=== PATIENT | female | born 1950 | race Two or more races ===

== ENCOUNTER 2017-09-16 08:04 | Emergency (ER) | payer BC, OTHER ==
[~2017-09-16] VITALS: Ht 157.5 cm; Wt 52.2 kg
[~2017-09-16 08:04] MED LIST: SUMA50TA PO
--- NOTE | 2017-09-16 08:26 | NUR ---
A/OX4, C/O RT SHOULDER/RT ARM PAIN S/P MOVING A HEAVY MACHINE ON SATURDAY. PT STS SHE FELT A CLICK IN HER RT [place]ICE[place] AREA. NAD VSS RR EVEN AND UNLABORED. WILL CONT TO MONITOR
[2017-09-16 09:40] VITALS: BP 135/76
== END 2017-09-16 09:41 | disposition home or self-care (01) ==
LOC: ER 08:05
DX: S46.211A Strain of muscle, fascia and tendon of other parts of biceps, right arm, initial encounter (principal); I10 Essential (primary) hypertension; G43.909 Migraine, unspecified, not intractable, without status migrainosus; X58.XXXA Exposure to other specified factors, initial encounter; Y93.89 Activity, other specified; Y92.89 Other specified places as the place of occurrence of the external cause; Y99.8 Other external cause status
CPT/HCPCS: 73030-TC; A4606; Z7610

== ENCOUNTER 2017-11-28 07:33 | Outpatient (CLI) | payer BC ==
[2017-11-28 08:14] LABS: ALBUMIN 3.6 g/dL (3.4-5.0); BILIRUBIN,TOTAL 0.4 mg/dL (0.2-1.0); CALCIUM, SERUM 8.8 mg/dL (8.5-10.1); CREATININE 0.7 mg/dL (0.6-1.3); POTASSIUM 4.1 mmol/L (3.5-5.1)
[2017-11-28 08:22] LABS: BASOPHILS % (AUTO) 0.2 % (0.0-2.0); HEMATOCRIT 41 % (33-45); HEMOGLOBIN 13.7 g/dL (11.5-14.8); LYMPHOCYTES # (AUTO) 1.3 /CMM (0.8-4.8); MEAN CORPUSCULAR HGB CONC 34 g/dl (31.0-36.0); MEAN CORPUSCULAR VOLUME 86 fL (82-100); MONOCYTES # (AUTO) 0.3 /CMM (0.1-1.30); MONOCYTES % (AUTO) 7.3 % (2.0-12.0); NEUTROPHILS # (AUTO) 2.4 /CMM (1.8-8.9); NEUTROPHILS % (AUTO) 60.5 % (43.0-81.0); PLATELET COUNT (AUTO) 235 /CMM (150-450); RDW COEFFICIENT OF VARIATION 12.9 (11.5-15.0); RED BLOOD CELL COUNT(AUTO) 4.72 MIL/uL (4.0-5.2); THYROID STIMULATING HORMONE 2.13 uIU/mL (0.358-3.74)
[2017-11-29 10:06] LABS: APPEARANCE,URINE CLEAR (CLEAR); BILIRUBIN,URINE NEGATIVE (NEGATIVE); BLOOD, URINE NEGATIVE Ery/uL (NEGATIVE); COLOR,URINE YELLOW (YELLOW); KETONES,URINE NEGATIVE (NEGATIVE); LEUKOCYTE ESTERASE ,URINE NEGATIVE (NEGATIVE); NITRITE, URINE NEGATIVE (NEGATIVE); PH,URINE 6.5 (5.0-8.0); PROTEIN,URINE NEGATIVE (NEGATIVE); UGLUCOSE NEGATIVE (NEGATIVE); UROBILINOGEN,URINE 0.2 EU/dL (0.2)
== END 2017-11-28 23:59 | disposition home or self-care (01) ==
LOC: LAB 07:33
PROVIDERS: ATTEND Nurse Practitioner Acute Care
DX: I70.0 Atherosclerosis of aorta (principal)
CPT/HCPCS: 36415; 71045-TC; 80053-TC; 80061-TC; 81000-TC; 82306; 84443-TC; 85025-TC; 86431-TC

== ENCOUNTER 2017-12-05 07:58 | Outpatient (CLI) | payer BC ==
[2017-12-05 09:47] LABS: CREATINE KINASE, TOTAL 56 U/L (26-192)
[2017-12-05 10:31] LABS: THYROID STIMULATING HORMONE 2.055 uIU/mL (0.358-3.74)
[2017-12-05 10:33] LABS: C-REACTIVE PROTEIN < 0.2 mg/dL (0.0-0.9)
[2017-12-06 18:12] LABS: *ANA ANTI-CENTROMERE B AB <0.2 AI (0.0-0.9); *ANA ANTI-DNA(DS) AB, QN 1 IU/mL (0-9); *ANA ANTI-JO-1 <0.2 AI (0.0-0.9); *ANA ANTICHROMATIN ANTIBODY 3.4 AI (0.0-0.9); *ANA RNP ANTIBODIES <0.2 AI (0.0-0.9); *ANA SJOGREN'S ANTI-SS-A <0.2 AI (0.0-0.9); *ANA SJOGREN'S ANTI-SS-B <0.2 AI (0.0-0.9); *ANAANTI-SCLERODERMA-70 AB <0.2 AI (0.0-0.9); *ANASMITH AB <0.2 AI (0.0-0.9)
[2017-12-08 05:11] LABS: CCP IgG/IgA AB 6 units (0-19)
== END 2017-12-05 23:59 | disposition home or self-care (01) ==
LOC: LAB 07:58
PROVIDERS: ATTEND Legal Medicine
DX: E11.9 Type 2 diabetes mellitus without complications (principal); M25.50 Pain in unspecified joint
CPT/HCPCS: 36415; 82550-TC; 84443-TC; 85652-TC; 86140-TC; 86200; 86225; 86235

== ENCOUNTER 2018-11-28 10:50 | Outpatient (CLI) | payer BC | END 2018-11-28 23:59 | disposition home or self-care (01) | LOC: MRI 10:50 | PROVIDERS: ATTEND Legal Medicine | DX: I63.89 Other cerebral infarction (principal); G31.89 Other specified degenerative diseases of nervous system; M50.323 Other cervical disc degeneration at C6-C7 level; M48.02 Spinal stenosis, cervical region; M25.78 Osteophyte, vertebrae; M50.221 Other cervical disc displacement at C4-C5 level; D18.09 Hemangioma of other sites | CPT/HCPCS: 70551-TC; 72141-TC ==

== ENCOUNTER 2018-12-11 07:10 | Outpatient (CLI) ==
[2018-12-11 08:51] LABS: BASOPHILS % (AUTO) 0.1 % (0.0-2.0); HEMATOCRIT 44 % (33-45); HEMOGLOBIN 14.8 g/dL (11.5-14.8); LYMPHOCYTES # (AUTO) 1.6 /CMM (0.8-4.8); LYMPHOCYTES % (AUTO) 32.4 % (20.0-44.0); MEAN CORPUSCULAR HGB CONC 33 g/dl (31.0-36.0); MEAN CORPUSCULAR VOLUME 87 fL (82-100); MONOCYTES # (AUTO) 0.4 /CMM (0.1-1.30); MONOCYTES % (AUTO) 7.5 % (2.0-12.0); NEUTROPHILS # (AUTO) 2.9 /CMM (1.8-8.9); PLATELET COUNT (AUTO) 231 /CMM (150-450); RED BLOOD CELL COUNT(AUTO) 5.08 MIL/uL (4.0-5.2); WHITE BLOOD COUNT (AUTO) 4.9 K/uL (4.3-11.0)
[2018-12-11 08:56] LABS: APPEARANCE,URINE CLEAR (CLEAR); BILIRUBIN,URINE NEGATIVE (NEGATIVE); BLOOD, URINE NEGATIVE Ery/uL (NEGATIVE); COLOR,URINE YELLOW (YELLOW); KETONES,URINE NEGATIVE (NEGATIVE); LEUKOCYTE ESTERASE ,URINE NEGATIVE (NEGATIVE); NITRITE, URINE NEGATIVE (NEGATIVE); PROTEIN,URINE NEGATIVE (NEGATIVE); UGLUCOSE NEGATIVE (NEGATIVE); UROBILINOGEN,URINE 0.2 EU/dL (0.2)
[2018-12-11 09:03] LABS: BILIRUBIN,TOTAL 0.6 mg/dL (0.2-1.0); CALCIUM, SERUM 9.1 mg/dL (8.5-10.1); CREATININE 0.8 mg/dL (0.6-1.3); POTASSIUM 4.4 mmol/L (3.5-5.1); TOTAL PROTEIN, SERUM 7.6 g/dL (6.4-8.2)
[2018-12-11 09:18] LABS: C-REACTIVE PROTEIN 0.6 mg/dL (0.0-0.9); THYROID STIMULATING HORMONE 2.178 uIU/mL (0.358-3.74); URIC ACID 4.6 mg/dL (2.6-7.2)
[2018-12-12 14:16] LABS: FOLIC ACID 16.1 ng/mL (>3.0)
== END 2018-12-11 23:59 | disposition home or self-care (01) ==
LOC: LAB 07:10
PROVIDERS: ATTEND Legal Medicine
DX: Z00.00 Encounter for general adult medical examination without abnormal findings (principal)
CPT/HCPCS: 36415; 80053-TC; 80061-TC; 81000-TC; 82306; 82728-TC; 83540-TC; 84439-TC; 84443-TC; 84550-TC; 85025-TC; 85652-TC; 86140-TC

== ENCOUNTER 2018-12-12 08:39 | Outpatient (CLI) | END 2018-12-12 23:59 | disposition home or self-care (01) | LOC: CARD 08:39 | PROVIDERS: ATTEND Legal Medicine | DX: I08.0 Rheumatic disorders of both mitral and aortic valves (principal); I10 Essential (primary) hypertension; R09.89 Other specified symptoms and signs involving the circulatory and respiratory systems | CPT/HCPCS: 93307-TC; 93880-TC ==

== ENCOUNTER 2019-11-06 08:21 | Emergency (ER) | payer BC ==
[~2019-11-06] VITALS: Ht 162.6 cm; Wt 63.0 kg
[2019-11-06] MEDS ORDERED: KETOROLAC TROMETHAMINE INJ 30 MG/ML VIAL ONE (08:29)
[2019-11-06 08:30] VITALS: BP 163/104
[2019-11-06] MEDS: KETOROLAC TROMETHAMINE INJ 60 MG/2 ML VIAL IM ONE (08:34)
--- NOTE | 2019-11-06 08:36 | NUR ---
Patient discharged to in stable condition. Written and verbal after care instructions given. Patient verbalizes understanding of instruction. Ambulatory, steady gait
== END 2019-11-06 08:36 | disposition home or self-care (01) ==
LOC: ER 08:22
DX: M54.41 Lumbago with sciatica, right side (principal); G43.909 Migraine, unspecified, not intractable, without status migrainosus; I10 Essential (primary) hypertension; Z79.899 Other long term (current) drug therapy
CPT/HCPCS: 96372; 99283; J1885

== ENCOUNTER 2019-12-17 07:22 | Outpatient (CLI) | payer BC, OTHER ==
[2019-12-17 09:01] LABS: BASOPHILS % (AUTO) 0.3 % (0.0-2.0); EOSINOPHILS % (AUTO) 0.1 % (0.0-6.0); HEMATOCRIT 43 % (33-45); HEMOGLOBIN 14.3 g/dL (11.5-14.8); LYMPHOCYTES # (AUTO) 1.6 /CMM (0.8-4.8); LYMPHOCYTES % (AUTO) 33.3 % (20.0-44.0); MEAN CORPUSCULAR HGB CONC 33 g/dl (31.0-36.0); MEAN CORPUSCULAR VOLUME 87 fL (82-100); MONOCYTES # (AUTO) 0.3 /CMM (0.1-1.30); MONOCYTES % (AUTO) 6.8 % (2.0-12.0); NEUTROPHILS # (AUTO) 2.8 /CMM (1.8-8.9); NEUTROPHILS % (AUTO) 59.5 % (43.0-81.0); PLATELET COUNT (AUTO) 232 /CMM (150-450); RED BLOOD CELL COUNT(AUTO) 4.93 MIL/uL (4.0-5.2); WHITE BLOOD COUNT (AUTO) 4.7 K/uL (4.3-11.0)
[2019-12-17 09:16] LABS: ALBUMIN 3.9 g/dL (3.4-5.0); BILIRUBIN,TOTAL 0.4 mg/dL (0.2-1.0); CREATININE 0.8 mg/dL (0.6-1.3); POTASSIUM 4.3 mmol/L (3.5-5.1); TOTAL PROTEIN, SERUM 7.5 g/dL (6.4-8.2)
[2019-12-17 09:19] LABS: BILIRUBIN,URINE NEGATIVE (NEGATIVE); BLOOD, URINE NEGATIVE Ery/uL (NEGATIVE); COLOR,URINE YELLOW (YELLOW); KETONES,URINE NEGATIVE (NEGATIVE); LEUKOCYTE ESTERASE ,URINE NEGATIVE (NEGATIVE); NITRITE, URINE NEGATIVE (NEGATIVE); PH,URINE 5.5 (5.0-8.0); PROTEIN,URINE NEGATIVE (NEGATIVE); UGLUCOSE NEGATIVE (NEGATIVE); UROBILINOGEN,URINE 0.2 EU/dL (0.2)
[2019-12-17 09:21] LABS: APPEARANCE,URINE CLEAR (CLEAR)
[2019-12-17 09:30] LABS: C-REACTIVE PROTEIN 0.7 mg/dL (0.0-0.9); THYROID STIMULATING HORMONE 2.349 uIU/mL (0.358-3.74); URIC ACID 3.4 mg/dL (2.6-7.2)
[2019-12-18 07:07] LABS: FOLIC ACID 16.5 ng/mL (>3.0)
== END 2019-12-17 23:59 | disposition home or self-care (01) ==
LOC: LAB 07:22
PROVIDERS: ATTEND Legal Medicine
DX: Z00.00 Encounter for general adult medical examination without abnormal findings (principal)
CPT/HCPCS: 36415; 80053-TC; 80061-TC; 81000-TC; 82306; 82550-TC; 82728-TC; 83540-TC; 84439-TC; 84443-TC; 84550-TC; 85025-TC; 85652-TC; 86140-TC; 86200; 86431-TC

== ENCOUNTER 2021-01-10 07:55 | Outpatient (CLI) | payer BC, OTHER ==
[2021-01-10 08:52] LABS: BASOPHILS % (AUTO) 0.2 % (0.0-2.0); HEMATOCRIT 42 % (33-45); HEMOGLOBIN 13.9 g/dL (11.5-14.8); LYMPHOCYTES # (AUTO) 1.5 /CMM (0.8-4.8); LYMPHOCYTES % (AUTO) 32.7 % (20.0-44.0); MEAN CORPUSCULAR HGB CONC 33 g/dl (31.0-36.0); MEAN CORPUSCULAR VOLUME 88 fL (82-100); MONOCYTES # (AUTO) 0.3 /CMM (0.1-1.30); MONOCYTES % (AUTO) 6.4 % (2.0-12.0); NEUTROPHILS # (AUTO) 2.7 /CMM (1.8-8.9); NEUTROPHILS % (AUTO) 60.7 % (43.0-81.0); PLATELET COUNT (AUTO) 274 /CMM (150-450); RED BLOOD CELL COUNT(AUTO) 4.81 MIL/uL (4.0-5.2); WHITE BLOOD COUNT (AUTO) 4.5 K/uL (4.3-11.0)
[2021-01-10 08:56] LABS: BILIRUBIN,URINE NEGATIVE (NEGATIVE); COLOR,URINE YELLOW (YELLOW); LEUKOCYTE ESTERASE ,URINE NEGATIVE (NEGATIVE); NITRITE, URINE NEGATIVE (NEGATIVE); PH,URINE 5.5 (5.0-8.0); PROTEIN,URINE NEGATIVE (NEGATIVE); UGLUCOSE NEGATIVE (NEGATIVE); UROBILINOGEN,URINE 0.2 EU/dL (0.2)
[2021-01-10 09:38] LABS: CHOLESTEROL 174 mg/dL (<200); CREATINE KINASE, TOTAL 79 U/L (26-192); FERRITIN 101 ng/mL (8-388); HDL CHOLESTEROL 37 mg/dL (40-60); LDL 113 mg/dL (0-99); THYROID STIMULATING HORMONE 1.863 uIU/mL (0.358-3.74); TRIGLYCERIDES 99 mg/dL (30-150); URIC ACID 4.2 mg/dL (2.6-7.2)
[2021-01-10 09:46] LABS: IRON, SERUM 64 ug/dl (50-175)
[2021-01-10 09:49] LABS: C-REACTIVE PROTEIN < 0.2 mg/dL (0.0-0.9)
[2021-01-10 09:53] LABS: ALANINE AMINOTRANSFERASE 40 U/L (12-78); ALBUMIN 3.7 g/dL (3.4-5.0); ALKALINE PHOSPHATASE 54 U/L (46-116); ASPARTATE AMINOTRANSFERASE 21 U/L (15-37); BILIRUBIN,TOTAL 0.4 mg/dL (0.2-1.0); CALCIUM, SERUM 8.8 mg/dL (8.5-10.1); CARBON DIOXIDE 25 mmol/L (21-32); CHLORIDE 107 mmol/L (98-107); CREATININE 0.8 mg/dL (0.6-1.3); GLUCOSE 122 mg/dL (74-106); POTASSIUM 4.3 mmol/L (3.5-5.1); SODIUM SERUM 142 mmol/L (136-145); TOTAL PROTEIN, SERUM 7.2 g/dL (6.4-8.2); UREA NITROGEN, BLOOD 18 mg/dL (7-18)
[2021-01-10 09:56] LABS: TOTAL IRON BINDING CAPACITY 282 ug/dl (250-450)
[2021-01-12 10:08] LABS: ALDOLASE 7.1 U/L (3.3-10.3)
[2021-01-12 21:06] LABS: CCP IgG/IgA AB 4 units (0-19)
== END 2021-01-10 23:59 | disposition home or self-care (01) ==
LOC: LAB 07:55
PROVIDERS: ATTEND Legal Medicine
DX: E03.9 Hypothyroidism, unspecified (principal); E78.5 Hyperlipidemia, unspecified; E23.0 Hypopituitarism; R53.1 Weakness; E11.9 Type 2 diabetes mellitus without complications; N18.9 Chronic kidney disease, unspecified; E55.9 Vitamin D deficiency, unspecified; Z00.00 Encounter for general adult medical examination without abnormal findings
CPT/HCPCS: 36415; 80053-TC; 80061-TC; 82085; 82306; 82550-TC; 82607-TC; 82728-TC; 83540-TC; 83615-TC; 84443-TC; 84550-TC; 85025-TC; 85652-TC; 86140-TC; 86200; 86431-TC

== ENCOUNTER 2021-03-24 09:54 | Outpatient (CLI) | payer BC, OTHER | END 2021-03-24 23:59 | disposition home or self-care (01) | LOC: MRI 09:54 | PROVIDERS: ATTEND Legal Medicine | DX: I67.82 Cerebral ischemia (principal) | CPT/HCPCS: 70551-TC ==

== ENCOUNTER 2021-04-05 07:15 | Emergency (ER) | payer BC, OTHER ==
[~2021-04-05] VITALS: Ht 162.6 cm; Wt 59.0 kg
--- NOTE | 2021-04-05 07:40 | NUR ---
DR WHITFIELD AT THE BEDSIDE
--- NOTE | 2021-04-05 07:45 | NUR ---
BIBS FOR C/O R LOWER BACK PAIN RADIATING TO RLE X 3 DAYS. THE PATIENT RATES PAINS 7/10. DENIES ANY TRAUMA. NO APPARENT DEFORMITY NOTED. WILL CONTINUE TO MONITOR THE PATIENT.
[2021-04-05] MEDS ORDERED: KETOROLAC TROMETHAMINE INJ 30 MG/ML VIAL ONE (07:54)
[2021-04-05] MEDS: KETOROLAC TROMETHAMINE INJ 30 MG/ML VIAL IM ONE (07:59)
[2021-04-05 08:25] VITALS: BP 144/90
--- NOTE | 2021-04-05 08:25 | NUR ---
Patient discharged to home in stable condition. Written and verbal after care instructions given. Patient verbalizes understanding of instruction.
== END 2021-04-05 08:26 | disposition home or self-care (01) ==
LOC: ER 07:17
DX: M54.42 Lumbago with sciatica, left side (principal); G43.909 Migraine, unspecified, not intractable, without status migrainosus; I10 Essential (primary) hypertension; Z79.899 Other long term (current) drug therapy
CPT/HCPCS: 96372; 99283; J1885

== ENCOUNTER 2022-02-16 06:55 | Outpatient (CLI) | payer BC, OTHER ==
[2022-02-16 08:41] LABS: BASOPHILS % (AUTO) 0.2 % (0.0-2.0); HEMATOCRIT 44 % (33-45); HEMOGLOBIN 14.7 g/dL (11.5-14.8); LYMPHOCYTES # (AUTO) 1.6 K/uL (0.8-4.8); LYMPHOCYTES % (AUTO) 34.3 % (20.0-44.0); MEAN CORPUSCULAR HGB CONC 33 g/dl (31.0-36.0); MEAN CORPUSCULAR VOLUME 86 fL (82-100); MONOCYTES # (AUTO) 0.4 K/uL (0.1-1.30); NEUTROPHILS # (AUTO) 2.6 K/uL (1.8-8.9); NEUTROPHILS % (AUTO) 57.5 % (43.0-81.0); PLATELET COUNT (AUTO) 260 K/uL (150-450); RED BLOOD CELL COUNT(AUTO) 5.14 MIL/uL (4.0-5.2); WHITE BLOOD COUNT (AUTO) 4.5 K/uL (4.3-11.0)
[2022-02-16 09:23] LABS: IRON, SERUM 79 ug/dl (50-175); TOTAL IRON BINDING CAPACITY 323 ug/dl (250-450)
[2022-02-16 09:37] LABS: CHOLESTEROL 200 mg/dL (<200); FERRITIN 72 ng/mL (8-388); HDL CHOLESTEROL 44 mg/dL (40-60); LDL 127 mg/dL (0-99); TRIGLYCERIDES 138 mg/dL (30-150); URIC ACID 4.4 mg/dL (2.6-7.2)
[2022-02-16 09:41] LABS: BILIRUBIN,URINE NEGATIVE (NEGATIVE); COLOR,URINE YELLOW (YELLOW); LEUKOCYTE ESTERASE ,URINE NEGATIVE (NEGATIVE); NITRITE, URINE NEGATIVE (NEGATIVE); PROTEIN,URINE NEGATIVE (NEGATIVE); UGLUCOSE NEGATIVE (NEGATIVE); UROBILINOGEN,URINE 0.2 EU/dL (0.2)
[2022-02-16 09:46] LABS: ALANINE AMINOTRANSFERASE 33 U/L (12-78); ALKALINE PHOSPHATASE 73 U/L (46-116); ASPARTATE AMINOTRANSFERASE 19 U/L (15-37); BILIRUBIN,TOTAL 0.6 mg/dL (0.2-1.0); CALCIUM, SERUM 9.2 mg/dL (8.5-10.1); CARBON DIOXIDE 29 mmol/L (21-32); CHLORIDE 104 mmol/L (98-107); CREATININE 0.8 mg/dL (0.6-1.3); GLUCOSE 117 mg/dL (74-106); POTASSIUM 4.1 mmol/L (3.5-5.1); SODIUM SERUM 139 mmol/L (136-145); UREA NITROGEN, BLOOD 20 mg/dL (7-18)
[2022-02-16 10:12] LABS: THYROID STIMULATING HORMONE 2.022 uIU/mL (0.358-3.74)
[2022-02-16 10:17] LABS: C-REACTIVE PROTEIN < 0.2 mg/dL (0.0-0.9)
== END 2022-02-16 23:59 | disposition home or self-care (01) ==
LOC: LAB 06:55
PROVIDERS: ATTEND Legal Medicine
DX: Z00.00 Encounter for general adult medical examination without abnormal findings (principal); K21.9 Gastro-esophageal reflux disease without esophagitis; D64.9 Anemia, unspecified; E03.9 Hypothyroidism, unspecified; E55.9 Vitamin D deficiency, unspecified; E78.00 Pure hypercholesterolemia, unspecified; E11.9 Type 2 diabetes mellitus without complications; R10.9 Unspecified abdominal pain
CPT/HCPCS: 36415; 80053-TC; 80061-TC; 82306; 82607-TC; 82728-TC; 83540-TC; 84439-TC; 84443-TC; 84550-TC; 85025-TC; 85652-TC; 86140-TC; 86431-TC

== ENCOUNTER 2022-02-23 08:29 | Emergency (ER) | payer BC, OTHER ==
[~2022-02-23] VITALS: Ht 162.6 cm; Wt 61.7 kg
[2022-02-23 08:34] VITALS: BP 154/106
--- NOTE | 2022-02-23 08:42 | NUR ---
THE PATIENT BIBS FOR C/O FACIAL DROOP NOTED LAST NIGHT AT 9 PM SHE WAS BRUSHING HER TEETH. IN ROOM AIR AND DENIES SOB. RESPIRATION REGULAR AND UNLABORED. DENIES PAIN. WILL CONTINUE TO MONITOR THE PATIENT.
[2022-02-23] MEDS ORDERED: PRED20TA PO (08:54)
[2022-02-23] MEDS ORDERED: VALA100026 PO (08:54)
--- NOTE | 2022-02-23 09:13 | NUR ---
Patient discharged to home in stable condition. Written and verbal after care instructions given. Patient verbalizes understanding of instruction.
== END 2022-02-23 09:14 | disposition home or self-care (01) ==
LOC: ER 08:37
DX: G51.0 Bell's palsy (principal); G43.909 Migraine, unspecified, not intractable, without status migrainosus; I10 Essential (primary) hypertension; Z79.899 Other long term (current) drug therapy

== ENCOUNTER 2023-05-03 08:30 | Outpatient (CLI) | payer BC, OTHER ==
[~2023-05-03 08:30] MED LIST changes: +AZIT250T PO; +GUAI-671 PO; +HYDR-3972 PO; +PRED20TA PO; +VALA100026 PO
[2023-05-03 09:30] LABS: BASOPHILS % (AUTO) 0.2 % (0.0-2.0); EOSINOPHILS % (AUTO) 0.6 % (0.0-6.0); HEMATOCRIT 45 % (33-45); HEMOGLOBIN 14.8 g/dL (11.5-14.8); LYMPHOCYTES # (AUTO) 1.5 K/uL (0.8-4.8); LYMPHOCYTES % (AUTO) 29.8 % (20.0-44.0); MEAN CORPUSCULAR HEMOGLOBIN 29 PG (26.0-33.0); MEAN CORPUSCULAR HGB CONC 33 g/dl (31.0-36.0); MEAN CORPUSCULAR VOLUME 88 fL (82-100); MONOCYTES # (AUTO) 0.4 K/uL (0.1-1.30); MONOCYTES % (AUTO) 8.6 % (2.0-12.0); NEUTROPHILS % (AUTO) 60.8 % (43.0-81.0); PLATELET COUNT (AUTO) 295 K/uL (150-450); RED BLOOD CELL COUNT(AUTO) 5.12 MIL/uL (4.0-5.2); RED CELL DISTRIBUTION WIDTH 13.2 % (11.5-15.0); WHITE BLOOD COUNT (AUTO) 4.9 K/uL (4.3-11.0)
[2023-05-03 10:02] LABS: APPEARANCE,URINE CLEAR (CLEAR); BILIRUBIN,URINE NEGATIVE (NEGATIVE); BLOOD, URINE NEGATIVE Ery/uL (NEGATIVE); COLOR,URINE YELLOW (YELLOW); KETONES,URINE NEGATIVE (NEGATIVE); LEUKOCYTE ESTERASE ,URINE NEGATIVE (NEGATIVE); NITRITE, URINE NEGATIVE (NEGATIVE); PH,URINE 5.5 (5.0-8.0); PROTEIN,URINE NEGATIVE (NEGATIVE); UGLUCOSE NEGATIVE (NEGATIVE); UROBILINOGEN,URINE 0.2 EU/dL (0.2)
[2023-05-03 10:14] LABS: C-REACTIVE PROTEIN 0.7 mg/dL (0.0-0.9); THYROID STIMULATING HORMONE 1.946 uIU/mL (0.358-3.74); URIC ACID 3.9 mg/dL (2.6-7.2)
[2023-05-03 10:48] LABS: RHEUMATOID FACTOR SCREEN NEGATIVE (NEGATIVE)
[2023-05-03 10:53] LABS: ERYTHROCYTE SEDIMENTATION RATE 19 MM/HR (0-30)
[2023-05-03 11:00] LABS: ALBUMIN 4.1 g/dL (3.4-5.0); BILIRUBIN,TOTAL 0.4 mg/dL (0.2-1.0); CALCIUM, SERUM 9.5 mg/dL (8.5-10.1); CREATININE 0.7 mg/dL (0.6-1.3); POTASSIUM 4.1 mmol/L (3.5-5.1); TOTAL PROTEIN, SERUM 7.7 g/dL (6.4-8.2)
[2023-05-04 06:06] LABS: FOLIC ACID > 20.0 ng/mL (>3.0)
[2023-05-04 08:07] LABS: VIT D, 25-HYDROXY 29.6 ng/mL (30.0-100.0)
[2023-05-04 20:06] LABS: CCP IgG/IgA AB 0 units (0-19)
[2023-05-08 18:06] LABS: *AREA 13 IGE,TOTAL 8 IU/mL (6-495); *D002-IGE D FARINAE <0.10 kU/L (Class 0); *E005-IGE DOG DANDER <0.10 kU/L (Class 0); *M001-IGE PENICILLIUM CHRYSOGE <0.10 kU/L (Class 0); *M006-IGE ALTERNARIA ALTERNATA <0.10 kU/L (Class 0)
== END 2023-05-03 23:59 | disposition home or self-care (01) ==
LOC: LAB 08:30
PROVIDERS: ATTEND Legal Medicine
DX: Z00.00 Encounter for general adult medical examination without abnormal findings (principal); R53.1 Weakness; E11.9 Type 2 diabetes mellitus without complications; I10 Essential (primary) hypertension; E55.9 Vitamin D deficiency, unspecified; E78.00 Pure hypercholesterolemia, unspecified; D64.9 Anemia, unspecified
CPT/HCPCS: 80053-TC; 80061-TC; 82306; 82607-TC; 82728-TC; 82785; 83540-TC; 84252; 84443-TC; 84550-TC; 85025-TC; 85652-TC; 86003; 86140-TC; 86200; 86431-TC

== ENCOUNTER 2024-03-05 06:40 | Emergency (ER) | payer BC, OTHER ==
[~2024-03-05] VITALS: Ht 162.6 cm; Wt 59.0 kg
[~2024-03-05 06:40] MED LIST changes: +FAMO-131 PO; +METH4TAB3 PO; +PRED50TA PO
[2024-03-05] MEDS: IV NS 0.9% 1,000 ML BAG IV ONE (07:30)
[2024-03-05] MEDS: KETOROLAC TROMETHAMINE 15 MG/ML VIAL IV ONE (07:30)
[2024-03-05] MEDS ORDERED: KETOROLAC TROMETHAMINE 15 MG/ML VIAL ONE (07:47)
[2024-03-05 07:54] LABS: BASOPHILS % (AUTO) 0.1 % (0.0-2.0); EOSINOPHILS % (AUTO) 0.1 % (0.0-6.0); HEMATOCRIT 41 % (33-45); HEMOGLOBIN 13.7 g/dL (11.5-14.8); LYMPHOCYTES # (AUTO) 1.1 K/uL (0.8-4.8); LYMPHOCYTES % (AUTO) 17.1 % (20.0-44.0); MEAN CORPUSCULAR HEMOGLOBIN 28 PG (26.0-33.0); MEAN CORPUSCULAR HGB CONC 33 g/dl (31.0-36.0); MEAN CORPUSCULAR VOLUME 84 fL (82-100); MONOCYTES # (AUTO) 0.4 K/uL (0.1-1.30); MONOCYTES % (AUTO) 5.8 % (2.0-12.0); NEUTROPHILS # (AUTO) 4.8 K/uL (1.8-8.9); NEUTROPHILS % (AUTO) 76.9 % (43.0-81.0); PLATELET COUNT (AUTO) 296 K/uL (150-450); RED CELL DISTRIBUTION WIDTH 13.6 % (11.5-15.0); WHITE BLOOD COUNT (AUTO) 6.2 K/uL (4.3-11.0)
[2024-03-05 08:15] LABS: CALCIUM, SERUM 9.2 mg/dL (8.5-10.1); CARBON DIOXIDE 25 mmol/L (21-32); CHLORIDE 104 mmol/L (98-107); CREATININE 0.6 mg/dL (0.6-1.3); GLUCOSE 128 mg/dL (74-106); POTASSIUM 3.9 mmol/L (3.5-5.1); SODIUM SERUM 138 mmol/L (136-145); UREA NITROGEN, BLOOD 16 mg/dL (7-18)
[2024-03-05 08:20] LABS: INR 1.05 (0.91-1.10); PARTIAL THROMBOPLASTIN TIME 69.2 SEC (24.3-34.3); PROTHROMBIN TIME 11.1 SECS (9.2-11.1)
[2024-03-05 08:21] LABS: ALANINE AMINOTRANSFERASE 28 U/L (12-78); ALBUMIN 3.2 g/dL (3.4-5.0); ALKALINE PHOSPHATASE 67 U/L (46-116); ASPARTATE AMINOTRANSFERASE 17 U/L (15-37); BILIRUBIN,DIRECT 0.1 mg/dL (0.0-0.2); BILIRUBIN,TOTAL 0.6 mg/dL (0.2-1.0); TOTAL PROTEIN, SERUM 6.9 g/dL (6.4-8.2)
[2024-03-05] MEDS ORDERED: IOHEXOL-300 100 ML VIAL IV ONE (08:38)
[2024-03-05] MEDS ORDERED: IV NS 0.9% 250 ML IV ONE (08:38)
[2024-03-05 10:00] VITALS: BP 145/88; TEMP 97.9; O2SAT 98
[2024-03-05] MEDS ORDERED: CLINDAMYCIN HCL 150 MG CAPSULE ONE (10:09)
[2024-03-05] MEDS ORDERED: CLIN300C12 PO (10:11)
[2024-03-05] MEDS: CLINDAMYCIN HCL 150 MG CAPSULE PO ONE (10:12)
== END 2024-03-05 10:26 | disposition home or self-care (01) ==
LOC: ER 07:01
DX: J02.9 Acute pharyngitis, unspecified (principal); G43.909 Migraine, unspecified, not intractable, without status migrainosus; I10 Essential (primary) hypertension; Z79.1 Long term (current) use of non-steroidal anti-inflammatories (NSAID); Z79.891 Long term (current) use of opiate analgesic; Z79.899 Other long term (current) drug therapy; Z20.822 Contact with and (suspected) exposure to COVID-19
CPT/HCPCS: 99285; 96374; 70491; 96361; 87426; 85025; 80048; 87070; 80076; 36415; 87880; 85730; 86850; J7030; J7050; Q9967; J1885; 86403-TC